=== PATIENT | female | born 1960 | race Hispanic/Latino ===

== ENCOUNTER → 2017-05-19 | Outpatient (REF) | payer OTHER | LOC: M SFHCWAGY 09:49 | PROVIDERS: ATTEND Nurse Practitioner Women's Health | DX: Z12.4 Encounter for screening for malignant neoplasm of cervix (principal) ==

== ENCOUNTER → 2017-05-27 | Outpatient (CLI) | payer OTHER ==
--- NOTE | 2017-05-27 10:47 | REP ---
BILATERAL MAMMOGRAM WITH DIAGNOSTIC MAMMOGRAM LEFT BREAST AND LEFT BREAST ULTRASOUND: Family history of breast cancer in sister and maternal grandmother. There is reportedly a palpable abnormality in the lateral left breast with discoloration of the skin at that location. The area is marked with a triangular skin marker. Comparison is made with prior study of 05/02/2016 as well as other prior exams. Vague, ill-defined opacity is seen at the site of the reported palpable abnormality having a diameter of approximately 2 cm. No other mass is seen bilaterally. No clustered microcalcifications are seen. There are normal-sized axillary lymph nodes present. Real-time sonographic evaluation of left breast performed in the region of the palpable abnormally laterally in the left breast. There is a superficial subcutaneous, slightly complex fluid collection at that location measuring 2.4 x 0.5 x 2.1 cm. This probably represents a hematoma. Just deep to the fluid collection within the left breast, are two 3 mm hypoechoic nodules. There are also mildly dilated ducts noted. IMPRESSION: ACR 3, probably benign. No suspicious mammographic abnormalities are seen. By ultrasound at the site of the reported abnormality, is a subcutaneous fluid collection, probably representing a small hematoma. Deep to this, are two hypoechoic nodules both measuring 3 mm in diameter. These are probably benign. Recommend 6 month followup ultrasound to ensure stability. BI-RADS/ACR category 3 mammogram. Probably benign findings. Initial short-term followup (usually 6 month) examination. This mammogram was interpreted with the aid of an FDA-approved computer-aided detection system. A. Negative x-ray reports should not delay biopsy if a dominant or clinically suspicious mass is present. B. Four to eight percent of cancers are not identified by x-ray. C. Adenosis and dense breasts may obscure an underlying neoplasm. The patient states she had a clinical breast exam in 05/2017. The patient letter being requested is M3. Signed by Renaldo Kumar MD 05/27/2017 04:55 P
== END ==
LOC: M RAD 08:12
PROVIDERS: ATTEND Physician Assistant
DX: Z12.31 Encounter for screening mammogram for malignant neoplasm of breast (principal)

== ENCOUNTER → 2017-12-04 | Outpatient (CLI) | payer OTHER | LOC: M RAD 09:10 | DX: R93.8 Abnormal findings on diagnostic imaging of other specified body structures (principal); N63.20 Unspecified lump in the left breast, unspecified quadrant | CPT/HCPCS: 77065 ==

== ENCOUNTER → 2017-12-25 | Outpatient (CLI) | payer OTHER, SELFPAY | LOC: M RAD 11:21 | DX: N63.11 Unspecified lump in the right breast, upper outer quadrant (principal) ==

== ENCOUNTER → 2018-01-14 | Outpatient (CLI) | payer OTHER ==
[~2018-01-14] MED LIST: LIDOCAINE 1% MDV 20ML VIAL As Ordered
== END ==
LOC: M RADPRO 10:23
DX: N63.10 Unspecified lump in the right breast, unspecified quadrant (principal); R92.8 Other abnormal and inconclusive findings on diagnostic imaging of breast; Z79.899 Other long term (current) drug therapy
CPT/HCPCS: 19083

== ENCOUNTER → 2018-02-10 | Outpatient (CLI) | payer OTHER | LOC: M RADPRO 10:16 | DX: R92.8 Other abnormal and inconclusive findings on diagnostic imaging of breast (principal); Z79.899 Other long term (current) drug therapy | CPT/HCPCS: 19081 ==

== ENCOUNTER → 2018-05-21 | Outpatient (REF) | payer OTHER | LOC: M SFHCWAGY 10:31 | DX: Z12.4 Encounter for screening for malignant neoplasm of cervix (principal) | CPT/HCPCS: G0123 ==

== ENCOUNTER → 2018-12-21 | Outpatient (CLI) | payer OTHER ==
--- NOTE | 2018-12-21 09:37 | REPMRS ---
Patient History The patient states she had a clinical breast exam in 2017. Family history of breast cancer at age 53 in sister, ovarian cancer under age 50 in maternal grandmother. Benign stereotatic loc for ea lesion of the right breast, February 10, 2018. Benign US guided breast biopsy of the right breast, January 14, 2018. Digital Mammo Screening Bilat: December 21, 2018 - Exam #: [id number] Bilateral CC and MLO view(s) were taken. Technologist: Marina Huertas, Technologist Prior study comparison: January 14, 2018, right breast digital mammo diagnostic unilateral performed at [facility]. December 25, 2017, right breast digital mammo diagnostic unilateral performed at [facility]. FINDINGS: There are scattered fibroglandular densities. There is a fairly symmetric fibroglandular pattern in both breasts. There has been no interval development of masses, areas of architectural distortion or clusters of microcalcifications typical of malignancy. Assessment: BI-RADS/ACR category 2 mammogram. Benign Findings. Recommendation Routine screening mammogram of both breasts in 1 year (for women over age 40). This mammogram was interpreted with the aid of an FDA-approved computer-aided dectection system. Electronically Signed By: Renaldo Kumar MD 12/21/18 0937
== END ==
LOC: M RAD 07:54
PROVIDERS: ATTEND Surgery
DX: Z12.31 Encounter for screening mammogram for malignant neoplasm of breast (principal)

== ENCOUNTER → 2019-07-01 | Outpatient (REF) | payer OTHER ==
[~2019-07-01] MED LIST changes: +CELE100C PO; +GLUC1CAP10 PO; -LIDOCAINE 1% MDV 20ML VIAL As Ordered; +OYST500T7 PO; +PATA2.5S OU; +REFR0.5D8 OU
== END ==
LOC: M SFHCWAGY 14:47
PROVIDERS: ATTEND Nurse Practitioner Women's Health
DX: Z12.4 Encounter for screening for malignant neoplasm of cervix (principal)

== ENCOUNTER 2019-07-14 06:33 | Observation (INO) | payer OTHER ==
[~2019-07-14] VITALS: Ht 149.9 cm; Wt 78.5 kg
[~2019-07-14 06:33] MED LIST changes: +LIDOCAINE 1% MDV 20ML VIAL SQ PRN; +LR 1,000 ML IV ONE; +ceFAZolin SOD 1 GM in D5W MINI-BAG PLUS 50 ML IV ONE
[2019-07-14] MEDS ORDERED: SCOPOLAMINE 1MG TRANSDERMAL PATCH As Ordered ONE (07:54)
[2019-07-14] MEDS ORDERED: PROPOFOL 200 MG/20 ML VIAL As Ordered ONE ×2 (08:16→10:27)
[2019-07-14] MEDS ORDERED: fentaNYL 250 MCG/5 ML INJECTION (J3010) As Ordered ONE (08:16)
[2019-07-14] MEDS ORDERED: ROCURONIUM BROMIDE 50 MG/5 ML VIAL As Ordered ONE ×2 (08:16→10:29)
[2019-07-14] MEDS ORDERED: LIDOCAINE 2% INJ 100 MG/5 ML SDV (FOR ANES.) As Ordered ONE (08:16)
[2019-07-14] MEDS ORDERED: MIDAZOLAM INJ 2 MG/2 ML VIAL (J2250) As Ordered ONE (08:17)
[2019-07-14] MEDS ORDERED: BACITRACIN PWD 50,000 UNITS VIAL As Ordered ONE (08:26)
[2019-07-14] MEDS ORDERED: HEPARIN SOD (PORCINE) 5000 UNITS/ML VIAL As Ordered ONE (08:39)
[2019-07-14] MEDS ORDERED: LIDOCAINE 1% MDV 20ML VIAL As Ordered ONE (08:39)
[2019-07-14] MEDS ORDERED: EPINEPHrine INJ 1 MG/ML 1ML AMP As Ordered ONE ×2 (08:40→08:46)
[2019-07-14] MEDS ORDERED: BUPIVACAINE LIPOSOME/PF 1.3% 20ML VIAL (13.3MG/ML)(EXPAREL)(C9290 PER1MG) As Ordered ONE (08:44)
[2019-07-14] MEDS ORDERED: SCOPOLAMINE 1MG TRANSDERMAL PATCH TOP ONE (09:00)
[2019-07-14] MEDS ORDERED: DESFLURANE 240 ML INHALANT As Ordered ONE (09:08)
[2019-07-14] MEDS ORDERED: fentaNYL 100 MCG/2 ML INJECTION (J3010) As Ordered ONE (11:01)
[2019-07-14] MEDS ORDERED: HYDROmorphone HCL 2 MG/ML 1ML VIAL (J1170) As Ordered ONE (11:02)
[2019-07-14] MEDS ORDERED: dexameTHASONE 4 MG/ML 1ML VIAL (J1100) As Ordered ONE (11:54)
[2019-07-14] MEDS ORDERED: ONDANSETRON 4MG/2ML VIAL (J2405) As Ordered ONE ×2 (11:54→13:31)
[2019-07-14] MEDS ORDERED: KETOROLAC 60 MG/2 ML VIAL (J1885) As Ordered ONE (11:54)
[2019-07-14] MEDS ORDERED: ACETAMINOPHEN 1000MG 100ML IV BTL (OFIRMEV) (J0131 PER 10MG) As Ordered ONE (12:12)
[2019-07-14] MEDS ORDERED: NEOSTIGMINE 10 MG/10 ML VIAL (J2710) As Ordered ONE (12:55)
[2019-07-14] MEDS ORDERED: GLYCOPYRROLATE INJ 0.2 MG/ML 2 ML VIAL As Ordered ONE (12:55)
--- NOTE | 2019-07-14 13:11 | POST-OPPD ---
Postoperative Procedure Note Date Of Procedure: Jul 14, 2019 PREOPERATIVE DIAGNOSIS: Bilateral symptomatic macromastia POSTOPERATIVE DIAGNOSIS: same FINDINGS: large pendulous breasts PROCEDURE: Bilateral breast reduction SURGEON: Dr Kohler ANESTHESIA: General SPECIMENS: Right breast 760g, Left breast 829g, liposuction 450cc ESTIMATED BLOOD LOSS: 150cc REPLACED: none DRAINS: 10 mm VELMA drains x 2 COMPLICATIONS: none POSTOPERATIVE CONDITION: stable PATTIE KOHLER DO Jul 14, 2019 13:10
[2019-07-14] MEDS ORDERED: fentaNYL 100 MCG/2 ML INJECTION (J3010) IV PRN (13:30)
[2019-07-14] MEDS ORDERED: HYDROMORPHONE HCL 0.5 MG/ 0.5 ML SYRINGE (J1170 PER 1) IV PRN (13:30)
[2019-07-14] MEDS ORDERED: ONDANSETRON 4MG/2ML VIAL (J2405) IV PRN ×2 (13:30→14:00)
[2019-07-14] MEDS ORDERED: PERCOCET 5MG/325MG TAB PO PRN ×2 (13:30→14:00)
[2019-07-14] MEDS ORDERED: LR 1,000 ML IV SCH (13:30)
[2019-07-14] MEDS ORDERED: PROMETHAZINE INJ 25 MG/ML VIAL (J2550) As Ordered ONE (13:49)
[2019-07-14] MEDS ORDERED: PROMETHAZINE INJ 25 MG/ML VIAL (J2550) IV PRN (14:15)
[2019-07-14] MEDS: LR 1,000 ML IV SCH (15:00)
[2019-07-14] MEDS: ceFAZolin SOD 1 GM in D5W MINI-BAG PLUS 50 ML IV SCH (15:34)
[2019-07-14 15:41] VITALS: BP 119/57
[2019-07-14 15:58] VITALS: BP 103/59
[2019-07-14] MEDS ORDERED: MORPHINE 4 MG/ML 1ML VIAL/SYRINGE (J2270) IV PRN (16:15)
[2019-07-14 16:19] VITALS: O2SAT 96
[2019-07-14 17:10] VITALS: BP 108/60
[2019-07-14 18:05] VITALS: BP 110/60
--- NOTE | 2019-07-14 19:01 | RO ---
DATE OF PROCEDURE: 07/14/2019 PREPROCEDURE DIAGNOSIS: Bilateral symptomatic macromastia. POSTPROCEDURE DIAGNOSIS: Bilateral symptomatic macromastia. FINDINGS: Large pendulous breasts. PROCEDURE: Bilateral breast reduction. SURGEON: Lou Bernal DO ANESTHESIA: General. SPECIMENS SENT: Right breast 760 grams, left breast 829 grams. LIPOSUCTION FLUID: 450 mL. BLOOD LOSS: 150 mL. No replacement needed. DRAINS: Two 10 mm Terrence-Cm drains. No complications. DESCRIPTION OF PROCEDURE: This is a 59-year-old female who has very large breasts with significant upper back pain and shoulder grooving. She is a great candidate for breast reduction, and she is ready to proceed today. Risks and benefits and alternatives discussed with the patient in detail, and informed consent was obtained. She was marked in the upright position in the preoperative holding area. Her measurements are as follows: From sternal notch to the nipple areolar complex on the left is 37 cm, on the right is 38 cm. She has a very wide-based breast. Her IMF is at 24 cm bilaterally. She is marked according to superior medial pedicle pattern. After the markings were completed, she was brought into the operating room, placed in supine position. Preoperative antibiotics given. Sequential stockings placed on the lower calves. General anesthesia was induced. Also, 5000 units of Heparin SQ was given to her before the procedure. She was prepped and draped in the usual sterile fashion. We finished our markings in the supine position, and started our procedure by outlining the nipple areolar complex at 45 mm in diameter. The incision was carried out using #10 blade and then PEAK and regular cautery were used for resecting of the tissue. Inferolateral portion of the breast was resected. Hemostasis was obtained using electrocautery as well. The pedicle was de-epithelialized using Castillo scissors. There was good vascular condition at all times. The wound was irrigated. Exparel was injected into the inferior portion of the breast. Then, we started reconstructing the breast tissue. We turned pedicle superiorly to its new position at 24 cm from sternal notch, and the breast mound was re-conformed, and it was suspended with #0 Vicryl sutures. The pillars were then closed with interrupted #3-0 Monocryl sutures. The vertical scar was 9 cm. Excess tissue was measured and resected, creating the horizontal scar which was closed with #3-0 Monocryl sutures and #3-0 V-Loc suture as well. 10 mm Terrence-Cm drain placed through the lateral portion of that horizontal scar. Nipple areolar complex was sutured in in layers with interrupted #3-0 Monocryl and #4-0 Monocryl sutures and a #5-0 plain. Then, we turned our attention to the left side. A mirror procedure was created. Nipple areolar complex was measured out at 45 mm in diameter. The inferolateral portion of the breast was resected using PEAK and regular cautery. Hemostasis was obtained. The pedicle was de-epithelialized using Castillo scissors, and the wound was irrigated. Exparel was injected into the breast tissue inferiorly and laterally and then the pedicle was turned superiorly to its new position at 24 cm from the sternal notch. The breast mound was re-created and was conformed using #0 Vicryl sutures. Pillars were closed with interrupted #3-0 Monocryl sutures. The length of the vertical scar is 9 cm on the left. Excess tissue was measured and resected, creating the horizontal scar which was closed with interrupted #3- 0 Monocryl sutures and a #3-0 V-Loc suture as well. Nipple areolar complex was sutured in layers with #3-0 and #4-0 Monocryl sutures as well as #5-0 plain. 10 mm Terrence-Cm drain was placed through the lateral portion of the horizontal incision. The excess tissue on the lateral chest was premarked in upright position and now confirmed in the lying position. She has excess tissue creating significant fold. Tumescent solution was infiltrated on the lateral chest on the left side 270 mL and on the right side 250 mL and then suction-assisted lipectomy was performed on both lateral portions of the chest, smoothing out the contour from the lateral breast transposing to the chest. Prineo dressing was applied. Xeroform to the nipple areolar complex with bulky dressing and a support bra. The patient was extubated in the operating room without any difficulty, was transferred to the recovery room in stable condition. KINZA
[2019-07-15] MEDS: ceFAZolin SOD 1 GM in D5W MINI-BAG PLUS 50 ML IV SCH (01:28)
[2019-07-15 02:57] VITALS: BP 110/60
[2019-07-15] MEDS: LR 1,000 ML IV SCH (05:30)
[2019-07-15 06:09] VITALS: BP 98/59
--- NOTE | 2019-07-15 10:04 | IPNPDOC ---
Subjective General Date/Time Seen The patient was seen on 07/15/19 at 8:00. Subject Chief Complaint/History The patient is a 59-year-old female admitted with a reason for visit of Hypertrophy Of Breasts. POD 1 s/p BBR. Doing well. Pain controlled. Walking, tolerating diet. Current Medications Current Medications Current Medications Medications (Trade) Dose Ordered Sig/Leona Route PRN Reason Start Time Stop Time Status Last Admin Dose Admin Cefazolin Sodium 1 gm/Dextrose 50 ml @ 100 mls/hr Q8H IV 07/14/19 16:00 07/15/19 00:29 DC 07/15/19 01:28 Fentanyl Citrate (Sublimaze) 25 mcg Q5MP PRN IV MODERATE PAIN (PS 4-7) 07/14/19 13:30 07/14/19 14:30 DC Hydromorphone HCl (Dilaudid) 0.4 mg Q5MP PRN IV MODERATE/SEVERE PAIN (PS 5-10) 07/14/19 13:30 07/14/19 14:30 DC Lactated Ringer's 1,000 ml @ 75 mls/hr [id number] IV 07/14/19 14:00 07/14/19 15:00 Lactated Ringer's 1,000 ml @ 100 mls/hr Q10H IV 07/14/19 13:30 07/14/19 14:30 DC Lidocaine HCl (LIDOCAINE 1% MDV 20ml) 0.1 ml ONCE PRN SQ DISCOMFORT BEFORE IV START 07/14/19 06:00 07/14/19 13:25 DC Miscellaneous (Unresolved Clarification Entry) SEE LABEL COMMENTS DAILY XX 07/14/19 09:00 07/14/19 16:11 DC Morphine Sulfate (Morphine Sulfate Inj) 4 mg Q4H PRN IV SEVERE PAIN (PS 8-10) 07/14/19 16:15 Ondansetron HCl (ZOFRAN INJection) 4 mg Q4HP PRN IV NAUSEA OR VOMITING 07/14/19 13:30 07/14/19 14:30 DC 07/14/19 13:33 Ondansetron HCl (ZOFRAN INJection) 4 mg Q4HP PRN IV NAUSEA 07/14/19 14:00 07/14/19 15:34 Oxycodone/ Acetaminophen (Percocet 5mg/ 325mg Tablet) 1 tab ASDIRECTED PRN PO MILD/MODERATE PAIN (PS 1-7) 07/14/19 13:30 07/14/19 14:30 DC Oxycodone/ Acetaminophen (Percocet 5mg/ 325mg Tablet) 1 tab Q4HP PRN PO MILD PAIN (PS 1-4) 07/14/19 14:00 Promethazine HCl (PHENERGAN INJection) 12.5 mg Q5MP PRN IV NAUSEA OR VOMITING 07/14/19 14:15 07/14/19 15:15 DC 07/14/19 13:50 Allergies Coded Allergies: No Known Allergies (Unverified , 07/05/19) Objective Physical Examination Examination GENERAL APPEARANCE:Patient seen, laying in bed, awake, alert, and oriented. Co mfortable, in no acute distress. SKIN: Warm and moist. BREAST: Incisions intact. NAC viable, warm. VELMA drains with serosanguinous drainage. Minimal post op ecchymosis. HEENT: Normocephalic, atraumatic. [place] palpebral conjunctiva, anicteric sclerae. Lips and mucosa appear moist. NECK: Supple, no thyromegaly. No obvious jugular venous distention. LUNGS: Clear to auscultation bilaterally. No wheezing appreciated. HEART: No chest wall abnormalities. Regular rate and rhythm with no murmurs appreciated. Vital Signs Vital Signs Date Time Temp Pulse Resp B/P (MAP) Pulse Ox O2 Delivery O2 Flow Rate FiO2 07/15/19 06:09 99.0 70 16 98/59 (72) 95 2.0 07/14/19 16:19 Nasal Cannula I&Os I&O- Last 24 Hours up to 6 AM 07/15/19 06:00 Intake Total 2210 ml Output Total 525 ml Balance 1685 ml Impression Symptomatic macromastia. S/p BBR POD 1. Doing well. Pain controlled. Stable for discharge. Dressing changed. teaching. F/up Plastic surgery 07/18/19 Instructions given. Plan / VTE VTE Prophylaxis Ordered?: Yes PATTIE KOHLER DO Jul 15, 2019 10:04
[2019-07-15] MEDS ORDERED: TYLETAB14 PO (10:08)
== END 2019-07-15 10:06 | disposition home or self-care (01) ==
LOC: M SDC 06:33 → M MS5PR 14:32 → M SDC 15:00 → M MS5PR 15:11 → M SDC 07-15 11:10 → M MS5PR 07-15 11:10
PROVIDERS: ADMIT Plastic Surgery Surgery of the Hand; ATTEND Plastic Surgery Surgery of the Hand
DX: N62 Hypertrophy of breast (principal); E78.5 Hyperlipidemia, unspecified; K21.9 Gastro-esophageal reflux disease without esophagitis; D64.9 Anemia, unspecified; Z79.899 Other long term (current) drug therapy
CPT/HCPCS: 19318; 88300; 88305; C9290; J0131; J0690; J1100; J1170; J1885; J2250; J2405; J2710; J3010

== ENCOUNTER → 2019-12-23 | Outpatient (CLI) | payer OTHER ==
[~2019-12-23] MED LIST changes: -LIDOCAINE 1% MDV 20ML VIAL SQ PRN; -LR 1,000 ML IV ONE; +TYLETAB14 PO; -ceFAZolin SOD 1 GM in D5W MINI-BAG PLUS 50 ML IV ONE
--- NOTE | 2019-12-23 10:03 | REPMRS ---
Patient History The patient states she had a clinical breast exam in July 2019.Patient is postmenopausal and had first child at age 31. Family history of breast cancer at age 53 in sister, ovarian cancer under age 50 in maternal grandmother. Reductions of both breasts, June 2019. Benign stereotatic loc for ea lesion of the right breast, February 10, 2018. Benign US guided breast biopsy of the right breast, January 14, 2018. Digital Woman Screen Mammo: December 23, 2019 - Exam #: [id number] Bilateral CC and MLO view(s) were taken. Technologist: Marina Huertas, Technologist Prior study comparison: December 21, 2018, bilateral digital mammo screening bilat, performed at [facility]. January 14, 2018, right breast digital mammo diagnostic unilateral, performed at [facility]. December 04, 2017, left breast digital mammo diagnostic unilateral, performed at [facility]. May 27, 2017, digital mammo diagnostic bilateral, performed at [facility]. FINDINGS: There are scattered fibroglandular densities. A needle biopsy marker clip is noted in the upper outer quadrant of the right breast. Two marker clips were visible previously. The patient has undergone bilateral breast reduction. There has been no change in the appearance of the mammogram from the prior studies. There is a mild amount of scattered fibroglandular density which is fairly symmetric. There is no interval development of dominant mass, architectural distortion, or grouped microcalcification suggestive of malignancy. 3-D tomosynthesis shows no additional findings. Assessment: BI-RADS/ACR category 2 mammogram. Benign Findings. Recommendation Breast MRI of both breasts in 6 months. Routine screening mammogram of both breasts in 1 year (for women over age 40). This patient's Lifetime Breast Cancer Risk is estimated at 21.8 %. Annual screening Breast MRI scanniing is recommended for patient's whose lifetime risk assessment is over 20%. This mammogram was interpreted with the aid of an FDA-approved computer-aided dectection system. Electronically Signed By: Richie Fonseca MD 12/23/19 0135
== END ==
LOC: M WHC 07:33
PROVIDERS: ATTEND Family Medicine
DX: Z12.31 Encounter for screening mammogram for malignant neoplasm of breast (principal); Z78.0 Asymptomatic menopausal state; Z80.3 Family history of malignant neoplasm of breast

== ENCOUNTER → 2020-03-12 | Outpatient (CLI) | payer OTHER | LOC: M LABSMTC 09:58 | PROVIDERS: ATTEND Anesthesiology | DX: Z01.818 Encounter for other preprocedural examination (principal); Z11.59 Encounter for screening for other viral diseases ==

== ENCOUNTER 2020-03-15 07:25 | Day surgery (SDC) | payer OTHER ==
[~2020-03-15] VITALS: Ht 149.9 cm; Wt 81.6 kg
[~2020-03-15 07:25] MED LIST changes: +NS 1,000 ML IV ONE
[2020-03-15] MEDS ORDERED: CELE100C PO (07:51)
[2020-03-15] MEDS ORDERED: LIDOCAINE 2% 100MG/5ML SDV (FOR ANES.) As Ordered ONE (08:10)
[2020-03-15] MEDS ORDERED: propofoL 500 MG/50 ML VIAL As Ordered ONE (08:10)
--- NOTE | 2020-03-15 08:28 | ROOR ---
Patient Name: Emma Palomo Procedure Date: 03/15/2020 8:08 AM Date of : 1960 Age: 59 Room: [facility] Gender: Female Note Status: Finalized Procedure: Colonoscopy Indications: Screening for colorectal malignant neoplasm Providers: Jose Guadalupe Ocampo Jr, MD Referring MD: SHAYNA CORRAL MD Requesting Provider: Medicines: Propofol per Anesthesia Complications: No immediate complications. Procedure: Pre-Anesthesia Assessment: - Prior to the procedure, a History and Physical was performed, and patient medications and allergies were reviewed. The patient is competent. The risks and benefits of the procedure and the sedation options and risks were discussed with the patient. All questions were answered and informed consent was obtained. Patient identification and proposed procedure were verified by the physician and the nurse in the pre-procedure area and in the procedure room. Mental Status Examination: alert and oriented. Airway Examination: normal oropharyngeal airway and neck mobility. Respiratory Examination: clear to auscultation. CV Examination: normal. ASA Grade Assessment: II - A patient with mild systemic disease. After reviewing the risks and benefits, the patient was deemed in satisfactory condition to undergo the procedure. The anesthesia plan was to use moderate sedation / analgesia (conscious sedation). Immediately prior to administration of medications, the patient was re-assessed for adequacy to receive sedatives. The heart rate, respiratory rate, oxygen saturations, blood pressure, adequacy of pulmonary ventilation, and response to care were monitored throughout the procedure. The physical status of the patient was re-assessed after the procedure. The Colonoscope was introduced through the anus and advanced to the cecum, identified by appendiceal orifice and ileocecal valve. The quality of the bowel preparation was adequate. Findings: The rectum, sigmoid colon, transverse colon, cecum and ileocecal valve appeared normal. Four polyps were found in the recto-sigmoid colon, transverse colon and ascending colon. The polyps were small in size. These polyps were removed with a cold snare. Resection and retrieval were complete. Impression: - The rectum, sigmoid colon, transverse colon, cecum and ileocecal valve are normal. - Four small polyps at the recto-sigmoid colon, in the transverse colon and in the ascending colon, removed with a cold snare. Resected and retrieved. Recommendation: - Repeat colonoscopy in 5 years for surveillance based on pathology results. Jose Guadalupe Ocampo MD Jose Guadalupe Ocampo Jr, MD 03/15/2020 8:28:16 AM Electronically signed by Jose Guadalupe Ocampo Jr, MD Number of Addenda: 0 Note Initiated On: 03/15/2020 8:08 AM Estimated Blood Loss: Estimated blood loss: none.
[2020-03-15 08:50] VITALS: BP 129/81
== END 2020-03-15 09:09 | disposition home or self-care (01) ==
LOC: M OPP 07:25
PROVIDERS: ATTEND Surgery
DX: Z12.11 Encounter for screening for malignant neoplasm of colon (principal); D12.6 Benign neoplasm of colon, unspecified; Z79.899 Other long term (current) drug therapy

== ENCOUNTER → 2020-07-10 | Outpatient (CLI) | payer OTHER ==
[~2020-07-10] MED LIST changes: -NS 1,000 ML IV ONE; -OYST500T7 PO; +OYST500T8 PO; +PROHANCE 279.3MG/ML 15ML VIAL As Ordered ONE
--- NOTE | 2020-07-20 09:57 | REP ---
MRI BILATERAL BREASTS WITHOUT AND WITHOUT CONTRAST HISTORY: Family history of breast cancer in sister. [facility] lifetime risk of breast cancer 21.8%. TECHNIQUE: Multiple sequences obtained in the axial, coronal, and sagittal planes prior to and following the intravenous administration of 15 cc ProHance. Images were evaluated on the [employer] software including dynamic post IV gadolinium axial T1 fat sat images, subtraction images, color overlay images, CAD images, and MIP reconstruction images. FINDINGS: There is mild fibroglandular tissue scattered bilaterally. There is mild background parenchymal enhancement. No significant cystic changes seen. Normal size and normal appearing lymph nodes are seen in both axillary regions. No enhancing mass is seen, and there is no enhancing morphologic abnormality bilaterally. IMPRESSION: BI-RADS category 1 negative bilateral breast MRI. No suspicious enhancing mass or morphologic abnormality. Yearly supplemental screening MRI of the breast is recommended for patients with an elevated lifetime risk of breast cancer 20% or greater, in additional to annual screening mammography, staggered every six months. [facility]
== END ==
LOC: M RAD 07:54
PROVIDERS: ATTEND Family Medicine
DX: Z12.31 Encounter for screening mammogram for malignant neoplasm of breast (principal); Z15.01 Genetic susceptibility to malignant neoplasm of breast; Z80.3 Family history of malignant neoplasm of breast
CPT/HCPCS: A9576; C8908

== ENCOUNTER → 2020-12-24 | Outpatient (CLI) | payer OTHER ==
[~2020-12-24] MED LIST changes: -PROHANCE 279.3MG/ML 15ML VIAL As Ordered ONE
--- NOTE | 2020-12-24 09:34 | REPMRS ---
Patient History The patient states she had a clinical breast exam in June 2020. Family history of breast cancer at age 53 in sister, ovarian cancer under age 50 in maternal grandmother. Reductions of both breasts, June 2019. Benign stereotatic loc for ea lesion of the right breast, February 10, 2018. Benign US guided breast biopsy of the right breast, January 14, 2018. Digital Woman Screen Mammo: December 24, 2020 - Exam #: [id number] Bilateral CC and MLO view(s) were taken. Technologist: Kassie Bob, Technologist Prior study comparison: July 10, 2020, bilateral breast MRI, performed at [facility]. December 23, 2019, bilateral digital woman screen mammo performed at [facility]. December 21, 2018, bilateral digital mammo screening bilat, performed at [facility]. FINDINGS: There are scattered fibroglandular densities. The Volpara volumetric breast density category is:B. There is a needle biopsy marker clip in the right breast. There has been no change in the appearance of the mammogram from the prior studies. There is a mild amount of scattered fibroglandular density which is fairly symmetric. There is no interval development of dominant mass, architectural distortion, or grouped microcalcification suggestive of malignancy. 3-D tomosynthesis shows no additional findings. Assessment: BI-RADS/ACR category 2 mammogram. Benign Findings. Recommendation Breast MRI of both breasts in 6 months. Routine screening mammogram of both breasts in 1 year (for women over age 40). This patient's [facility] Lifetime Breast Cancer Risk is estimated at 21.1 %. Annual screening Breast MRI scanniing is recommended for patient's whose lifetime risk assessment is over 20%. This mammogram was interpreted with the aid of an FDA-approved computer-aided dectection system. Electronically Signed By: Richie Fonseca MD 12/24/20 0933
== END ==
LOC: M WHC 07:48
PROVIDERS: ATTEND Family Medicine
DX: Z12.31 Encounter for screening mammogram for malignant neoplasm of breast (principal); Z80.3 Family history of malignant neoplasm of breast; Z98.890 Other specified postprocedural states; Z86.018 Personal history of other benign neoplasm

== ENCOUNTER → 2021-07-04 | Outpatient (CLI) | payer OTHER | LOC: M WHC 09:04 | PROVIDERS: ATTEND Family Medicine | DX: Z53.9 Procedure and treatment not carried out, unspecified reason (principal) ==

== ENCOUNTER → 2021-07-17 | Outpatient (CLI) | payer OTHER ==
[~2021-07-17] MED LIST changes: +PROHANCE 279.3MG/ML 15ML VIAL As Ordered ONE
--- NOTE | 2021-07-17 13:17 | REP ---
INDICATION: DENSE BREAST TISSUE HIGH RISK SCREENING. COMPARISON: Comparison mammography December 24, 2020. Comparison MRI study of the breast is from July 10, 2020. TECHNIQUE: Three [place]una MRI imaging was performed with a dedicated breast coil. Axial, coronal, and sagittal T1 and T2 weighted scans were obtained with and without fat saturation in the usual fashion. The study includes dynamically acquired post gadolinium-enhanced imaging with image subtraction. Maximum intensity projection and multi planar reformation imaging is included as well. This study is interpreted with the aid of [employer], an FDA approved computer aided detection (CAD) software program, on a dedicated breast MRI workstation. The gadolinium enhancement dose is 15 mL of intravenous ProHance. FINDINGS: There is a mild amount of fibroglandular tissue bilaterally corresponding with the mammographic pattern. There is mild background parenchymal enhancement. There is no evidence of axillary lymphadenopathy or significant breast cystic change. High-resolution pre and post-contrast T1 and T2 weighted scans show no suspicious morphologic abnormality in either breast. Dynamically acquired sequential postcontrast images show no suspicious area of enhancement and washout kinetics in either breast to suggest malignancy. Subtraction images show no additional abnormality. There is a magnetic field susceptibility artifact in the right breast inferolaterally corresponding with the mammographically visible marker clip. There are scattered micrometallic artifacts in this patient is status post bilateral breast reduction. A 1 cm gallstone is visible in the gallbladder. IMPRESSION: BI-RADS category 2 benign bilateral breast MRI findings. Cholelithiasis is noted incidentally. Postoperative changes are seen. <Electronically signed by Richie Fonseca > 07/17/21 [id number]
== END ==
LOC: M RAD 09:08
PROVIDERS: ATTEND Student in an Organized Health Care Education/Training Program
DX: Z12.31 Encounter for screening mammogram for malignant neoplasm of breast (principal)
CPT/HCPCS: A9576; C8908

== ENCOUNTER → 2021-12-26 | Outpatient (CLI) | payer OTHER ==
[~2021-12-26] MED LIST changes: -PROHANCE 279.3MG/ML 15ML VIAL As Ordered ONE
== END ==
LOC: M WHC 07:01
PROVIDERS: ATTEND Family Medicine
DX: Z12.31 Encounter for screening mammogram for malignant neoplasm of breast (principal); Z78.0 Asymptomatic menopausal state; Z80.3 Family history of malignant neoplasm of breast

== ENCOUNTER → 2022-07-31 | Outpatient (REF) | payer OTHER | LOC: M LAB REF 11:57 | PROVIDERS: ATTEND Ophthalmology | DX: H02.9 Unspecified disorder of eyelid (principal) ==

== ENCOUNTER → 2022-12-29 | Outpatient (CLI) | payer OTHER | LOC: M WHC 08:05 | PROVIDERS: ATTEND Family Medicine | DX: Z12.31 Encounter for screening mammogram for malignant neoplasm of breast (principal) ==

== ENCOUNTER 2023-11-16 11:48 | Observation (INO) | payer OTHER ==
[~2023-11-16] VITALS: Ht 149.9 cm; Wt 74.9 kg
[2023-11-16] VITALS (9 sets, daily range): BP systolic 122–163; BP diastolic 58–82; TEMP 97.7–98.4; O2SAT 98–100
[2023-11-16] MEDS ORDERED: FLUTISP NARES (11:57)
[2023-11-16] MEDS ORDERED: FEXO-116 PO (11:57)
[2023-11-16 14:17] LABS: BASO % 0.4 % (0.0-1.0); EOS # 0.1 10^3/uL (0.0-0.5); EOS % 1.1 % (0.0-3.0); HEMATOCRIT 22.9 % (36.0-47.0); LYMPH # 1.7 10^3/uL (1.5-5.0); LYMPH % 20.8 % (24.0-44.0); MEAN CORPUSCULAR HEMOGLOBIN 15.9 pg (27.0-33.0); MEAN CORPUSCULAR HGB CONC 25.3 g/dl (32.0-36.5); MEAN CORPUSCULAR VOLUME 62.7 fl (80.0-96.0); MONO # 0.7 10^3/uL (0.0-0.8); MONO % 8.8 % (2.0-8.0); NEUTROPHILS # 5.4 10^3/uL (1.5-8.5); NEUTROPHILS % 68.4 % (36.0-66.0); PLATELET COUNT, AUTOMATED 268 10^3/uL (150-450); RED BLOOD COUNT 3.65 10^6/uL (4.00-5.40); WHITE BLOOD COUNT 7.9 10^3/uL (4.0-10.0)
[2023-11-16 14:31] LABS: HEMOGLOBIN 5.8 g/dl (12.0-15.5)
[2023-11-16 14:32] LABS: ALBUMIN 3.5 G/DL (3.2-5.2); ALKALINE PHOSPHATASE 95 U/L (46-116); ALT/SGPT 10 U/L (7.0-40); AST/SGOT 10 U/L (<34); BILIRUBIN,DIRECT 0.2 MG/DL (<0.4); BILIRUBIN,TOTAL 0.5 MG/DL (0.3-1.2); BLOOD UREA NITROGEN 14 MG/DL (9-23); CARBON DIOXIDE LEVEL 25 MMOL/L (20-31); CHLORIDE LEVEL 109 MMOL/L (98-107); CK-MB VALUE MASS < 1.0 NG/ML (<3.6); CPK CREATINE PHOSPHOKINASE 55 U/L (34-145); CREATININE FOR GFR 0.52 MG/DL (0.55-1.30); GLOMERULAR FILTRATION RATE > 60.0 (>45); GLUCOSE, FASTING 102 MG/DL (74-106); INR 1.19; MB/CK RELATIVE INDEX 1.81 (< OR =4); POTASSIUM SERUM 3.8 MMOL/L (3.5-5.1); PROTHROMBIN TIME 14.8 SECONDS (12.5-14.5); SODIUM LEVEL 141 MMOL/L (136-145); TOTAL PROTEIN 7.2 G/DL (5.7-8.2)
[2023-11-16 14:33] LABS: PARTIAL THROMBOPLASTIN TIME 30.6 SECONDS (24.8-34.2)
[2023-11-16] MEDS ORDERED: PROP15DR15 OU (15:02)
[2023-11-16] MEDS ORDERED: ACET325C5 PO (15:02)
[2023-11-16] MEDS ORDERED: TURM500T PO (15:02)
[2023-11-16] MEDS ORDERED: HOME MED LIST COMPLETE! XX SCH (15:05)
[2023-11-16] MEDS ORDERED: TUMS500C PO (15:15)
[2023-11-16] MEDS ORDERED: OLOP5DRO11 OU (15:15)
[2023-11-16] MEDS ORDERED: diphenhydrAMINE 50MG CAP PO ONE (15:20)
[2023-11-16] MEDS ORDERED: ACETAMINOPHEN TAB 650MG DOSE (2X325MG) PO ONE (15:20)
[2023-11-16 15:58] LABS: LDH LACTATE DEHYDROGENASE 158 U/L (120-246)
[2023-11-16 15:59] LABS: IRON (FE) 8 UG/DL (50-170); PERCENT SATURATION 1.8 % (13.2-45.0); TOTAL IRON BINDING CAPACITY 433 UG/DL (250-425)
[2023-11-16] MEDS ORDERED: GASTROGRAFIN SOLUTION 30ML PO SCH (16:00)
[2023-11-16 16:02] LABS: FERRITIN < 0.9 NG/ML (7.3-270.7)
[2023-11-16] MEDS ORDERED: CelecoXIB (CeleBREX) 100 MG CAP PO PRN (16:20)
[2023-11-16] MEDS ORDERED: CALCIUM CARBONATE 500 MG CHEW U/D PO PRN (16:20)
[2023-11-16] MEDS ORDERED: SENOKOT S TAB PO PRN (16:20)
[2023-11-16] MEDS ORDERED: MIRALAX *UNIT DOSE* 17GM PACKET PO PRN (16:20)
[2023-11-16] MEDS ORDERED: MIRA1POW3 PO (16:23)
[2023-11-16] MEDS ORDERED: ASCO50TA PO (16:23)
[2023-11-16] MEDS ORDERED: SENN-52 PO (16:23)
[2023-11-16] MEDS ORDERED: FERR325T3 PO (16:28)
[2023-11-16 17:39] LABS: THYROID STIMULATING HORMONE 0.271 uIU/ML (0.55-4.78)
[2023-11-16] MEDS: FLUTICASONE PROP 0.05% NASAL SPRAY 16 GM (FLONASE) NARES SCH (20:10)
[2023-11-16] MEDS: OLOPATADINE 0.1% OPHTH SOL 5ML(PATANOL) OU SCH (20:10)
[2023-11-17] VITALS (9 sets, daily range): BP systolic 118–145; BP diastolic 58–72; TEMP 97.1–97.7; O2SAT 97–99
[2023-11-17 00:18] LABS: HEMATOCRIT 26.5 % (36.0-47.0); HEMOGLOBIN 7.3 g/dl (12.0-15.5)
[2023-11-17 00:43] LABS: CK-MB VALUE MASS < 1.0 NG/ML (<3.6)
[2023-11-17 00:44] LABS: CPK CREATINE PHOSPHOKINASE 44 U/L (34-145); MB/CK RELATIVE INDEX 2.27 (< OR =4)
[2023-11-17 07:34] LABS: HEMATOCRIT 36.3 % (36.0-47.0); MEAN CORPUSCULAR HEMOGLOBIN 20.2 pg (27.0-33.0); MEAN CORPUSCULAR HGB CONC 29.2 g/dl (32.0-36.5); MEAN CORPUSCULAR VOLUME 69.3 fl (80.0-96.0); PLATELET COUNT, AUTOMATED 224 10^3/uL (150-450); RED BLOOD COUNT 5.24 10^6/uL (4.00-5.40)
[2023-11-17 07:36] LABS: HEMOGLOBIN 10.6 g/dl (12.0-15.5)
[2023-11-17 07:51] LABS: BLOOD UREA NITROGEN 10 MG/DL (9-23); CALCIUM LEVEL 9.1 MG/DL (8.3-10.6); CARBON DIOXIDE LEVEL 23 MMOL/L (20-31); CHLORIDE LEVEL 113 MMOL/L (98-107); CREATININE FOR GFR 0.54 MG/DL (0.55-1.30); GLOMERULAR FILTRATION RATE > 60.0 (>45); GLUCOSE, FASTING 85 MG/DL (74-106); POTASSIUM SERUM 4.2 MMOL/L (3.5-5.1); SODIUM LEVEL 142 MMOL/L (136-145)
[2023-11-17 07:52] LABS: CHOLESTEROL LEVEL 163 MG/DL (<200); CHOLESTEROL RISK RATIO 3.23 (<5); CK-MB VALUE MASS < 1.0 NG/ML (<3.6); CPK CREATINE PHOSPHOKINASE 38 U/L (34-145); HDL CHOLESTEROL 50.4 MG/DL (>40); MB/CK RELATIVE INDEX 2.63 (< OR =4); NON-HDL-C 112.6 MG/DL; TRIGLYCERIDES LEVEL 103 MG/DL (<150)
[2023-11-17] MEDS: FLUTICASONE PROP 0.05% NASAL SPRAY 16 GM (FLONASE) NARES SCH (08:52)
[2023-11-17] MEDS: OLOPATADINE 0.1% OPHTH SOL 5ML(PATANOL) OU SCH (08:52)
[2023-11-17] MEDS ORDERED: FERROUS SULFATE 300MG/5ML UDC LIQUID PO SCH (09:00)
[2023-11-17] MEDS ORDERED: ASCORBIC ACID 500 MG TAB PO SCH (09:00)
== END 2023-11-17 09:50 | disposition home or self-care (01) ==
LOC: M ED 12:46 → M ED INP 14:55 → M MS4PR 19:50
PROVIDERS: ADMIT General Practice; ATTEND General Practice
DX: D50.9 Iron deficiency anemia, unspecified (principal); E78.00 Pure hypercholesterolemia, unspecified; M19.90 Unspecified osteoarthritis, unspecified site; Z86.010 Personal history of colon polyps; Z79.899 Other long term (current) drug therapy
CPT/HCPCS: 36415; 36430; 71046; 80048; 80061; 80076; 80503; 82550; 82553; 82728; 83010; 83020; 83036; 83550; 83615; 84443; 84484; 85014; 85018; 85025; 85027; 85046; 85610; 85730; 86850; 86900; 86901; 86920; 87486; 87581; 87633; 87798; 93005; 93041; 97161; 99285; P9016

== ENCOUNTER → 2023-12-31 | Outpatient (CLI) | payer OTHER ==
[~2023-12-31] MED LIST changes: +ACET325C5 PO; +ASCO50TA PO; +FERR325T3 PO; +FEXO-116 PO; +FLUTISP NARES; +MIRA33506 PO; +OLOP5DRO11 OU; +PROP15DR15 OU; +SENN-52 PO; +TUMS500C PO; +TURM500T PO
== END ==
LOC: M WHC 08:52
PROVIDERS: ATTEND Nurse Practitioner Primary Care
DX: Z12.31 Encounter for screening mammogram for malignant neoplasm of breast (principal)

== ENCOUNTER → 2024-02-09 | Outpatient (CLI) | payer OTHER ==
[2024-02-09 11:18] LABS: HEMATOCRIT 46.6 % (36.0-47.0); HEMOGLOBIN 14.5 g/dl (12.0-15.5); MEAN CORPUSCULAR HEMOGLOBIN 28.4 pg (27.0-33.0); MEAN CORPUSCULAR HGB CONC 31.1 g/dl (32.0-36.5); MEAN CORPUSCULAR VOLUME 91.2 fl (80.0-96.0); PLATELET COUNT, AUTOMATED 203 10^3/uL (150-450); RED BLOOD COUNT 5.11 10^6/uL (4.00-5.40); WHITE BLOOD COUNT 6.3 10^3/uL (4.0-10.0)
[2024-02-09 11:37] LABS: FERRITIN 21.8 NG/ML (7.3-270.7); FREE T4 1.34 NG/DL (0.89-1.76)
[2024-02-09 11:38] LABS: THYROID STIMULATING HORMONE 0.734 uIU/ML (0.55-4.78)
== END ==
LOC: M PLALAB 08:09
PROVIDERS: ATTEND Internal Medicine Hematology
DX: E61.1 Iron deficiency (principal)

== ENCOUNTER 2024-03-10 09:51 | Outpatient (CLI) | payer MEDICARE, OTHER ==
[~2024-03-10] VITALS: Ht 149.9 cm; Wt 77.3 kg
[~2024-03-10 09:51] MED LIST changes: +ALBUTEROL SULFATE 2.5MG/0.5ML INH NEB SOLN INH PRN; +EPINEPHrine INJ 1 MG/ML 1ML AMP IM PRN; +diphenhydrAMINE 50MG/ML VIAL IV PRN; +methylPREDNISolone 125MG 2ML VIAL IV PRN
[2024-03-10 10:30] VITALS: BP 157/80; O2SAT 98
[2024-03-10] MEDS ORDERED: ACETAMINOPHEN TAB 650MG DOSE (2X325MG) PO ONE (10:30)
[2024-03-10] MEDS ORDERED: NS 1,000 ML IV SCH (10:30)
[2024-03-10] MEDS: IRON SUCROSE 200 MG in NS 100 ML OVER 1 HR IV ONE (10:41)
[2024-03-10 11:50] VITALS: BP 136/75; O2SAT 97
== END 2024-03-10 12:00 | disposition home or self-care (01) ==
LOC: M INFU 09:51
PROVIDERS: ATTEND Internal Medicine Hematology
DX: D50.8 Other iron deficiency anemias (principal)
CPT/HCPCS: 96365; J1756

== ENCOUNTER 2024-03-17 11:00 | Outpatient (CLI) | payer MEDICARE, OTHER ==
[~2024-03-17] VITALS: Ht 149.9 cm; Wt 77.0 kg
[2024-03-17 11:00] VITALS: BP 143/79; O2SAT 97
[~2024-03-17 11:00] MED LIST changes: +ACETAMINOPHEN 650MG PO PRIOR TO INFUSION PO ONE; +NS 1,000 ML IV SCH
[2024-03-17] MEDS: IRON SUCROSE 200 MG in NS 100 ML IV ONE (11:59)
[2024-03-17 13:00] VITALS: BP 138/66; O2SAT 99
== END 2024-03-17 13:05 | disposition home or self-care (01) ==
LOC: M INFU 11:00
PROVIDERS: ATTEND Internal Medicine Hematology
DX: D50.8 Other iron deficiency anemias (principal)
CPT/HCPCS: 96365; J1756

== ENCOUNTER 2024-03-24 12:25 | Outpatient (CLI) | payer MEDICARE, OTHER ==
[~2024-03-24] VITALS: Ht 149.9 cm; Wt 73.2 kg
[~2024-03-24 12:25] MED LIST changes: -ACETAMINOPHEN 650MG PO PRIOR TO INFUSION PO ONE
[2024-03-24 12:30] VITALS: BP 124/88; O2SAT 96
[2024-03-24] MEDS: IRON SUCROSE 200 MG in NS 100 ML OVER 1 HR IV ONE (12:30)
[2024-03-24] MEDS ORDERED: ACETAMINOPHEN TAB 650MG DOSE (2X325MG) PO ONE (12:30)
[2024-03-24 13:40] VITALS: BP 131/82; O2SAT 97
== END 2024-03-24 15:20 ==
LOC: M INFU 12:25
PROVIDERS: ATTEND Internal Medicine Hematology
DX: D50.8 Other iron deficiency anemias (principal)
CPT/HCPCS: 96365; J1756

== ENCOUNTER 2024-03-31 12:00 | Outpatient (CLI) | payer MEDICARE, OTHER ==
[~2024-03-31 12:00] MED LIST changes: +ACETAMINOPHEN TAB 650MG DOSE (2X325MG) PO ONE
[2024-03-31 12:05] VITALS: BP 126/72; O2SAT 98
[2024-03-31] MEDS: IRON SUCROSE 200 MG in NS 100 ML OVER 1 HR IV ONE (12:51)
== END 2024-03-31 13:55 | disposition home or self-care (01) ==
LOC: M INFU 12:00
PROVIDERS: ATTEND Internal Medicine Hematology
DX: D50.8 Other iron deficiency anemias (principal)
CPT/HCPCS: 96365; J1756

== ENCOUNTER 2024-04-07 09:22 | Day surgery (SDC) | payer MEDICARE, OTHER ==
[~2024-04-07] VITALS: Ht 149.9 cm; Wt 76.7 kg
[~2024-04-07 09:22] MED LIST changes: -ACETAMINOPHEN TAB 650MG DOSE (2X325MG) PO ONE; -ALBUTEROL SULFATE 2.5MG/0.5ML INH NEB SOLN INH PRN; -EPINEPHrine INJ 1 MG/ML 1ML AMP IM PRN; +NS 1,000 ML IV ONE; -NS 1,000 ML IV SCH; -diphenhydrAMINE 50MG/ML VIAL IV PRN; -methylPREDNISolone 125MG 2ML VIAL IV PRN
[2024-04-07] MEDS ORDERED: fentaNYL 100 MCG/2 ML INJECTION As Ordered ONE (09:57)
[2024-04-07] MEDS ORDERED: LIDOCAINE 2% 100MG/5ML SDV (FOR ANES.) As Ordered ONE (10:58)
[2024-04-07] MEDS ORDERED: propofoL 200 MG/20 ML VIAL As Ordered ONE (10:58)
[2024-04-07] MEDS ORDERED: GLYCOPYRROLATE INJ 0.2 MG/ML 2 ML VIAL As Ordered ONE (11:04)
[2024-04-07] MEDS ORDERED: ePHEDrine SULFATE 25 MG/5 ML(5MG/ML) SYRINGE As Ordered ONE (11:12)
[2024-04-07 11:38] VITALS: BP 158/83; O2SAT 98
== END 2024-04-07 11:43 | disposition home or self-care (01) ==
LOC: M OPP 09:22
PROVIDERS: ATTEND Surgery
DX: K64.2 Third degree hemorrhoids (principal); K64.4 Residual hemorrhoidal skin tags; Z86.010 Personal history of colon polyps; D50.9 Iron deficiency anemia, unspecified; K44.9 Diaphragmatic hernia without obstruction or gangrene; K29.70 Gastritis, unspecified, without bleeding; Z79.52 Long term (current) use of systemic steroids; Z79.1 Long term (current) use of non-steroidal anti-inflammatories (NSAID)
CPT/HCPCS: 43235; 45378; J3010

== ENCOUNTER 2024-04-08 09:30 | Outpatient (CLI) | payer MEDICARE, OTHER ==
[~2024-04-08] VITALS: Ht 149.9 cm; Wt 76.8 kg
[2024-04-08 09:30] VITALS: BP 131/88; O2SAT 95
[~2024-04-08 09:30] MED LIST changes: +ACETAMINOPHEN TAB 650MG DOSE (2X325MG) PO ONE; +ALBUTEROL SULFATE 2.5MG/0.5ML INH NEB SOLN INH PRN; +EPINEPHrine INJ 1 MG/ML 1ML AMP IM PRN; -NS 1,000 ML IV ONE; +NS 1,000 ML IV SCH; +diphenhydrAMINE 50MG/ML VIAL IV PRN; +methylPREDNISolone 125MG 2ML VIAL IV PRN
[2024-04-08] MEDS: IRON SUCROSE 200 MG in NS 100 ML OVER 1 HR IV ONE (10:27)
[2024-04-08 12:10] VITALS: BP 135/75; O2SAT 96
== END 2024-04-08 12:15 ==
LOC: M INFU 09:30
PROVIDERS: ATTEND Internal Medicine Hematology
DX: D50.8 Other iron deficiency anemias (principal)
CPT/HCPCS: 96365; J1756

== ENCOUNTER → 2024-07-19 | Outpatient (CLI) | payer MEDICARE, OTHER ==
[~2024-07-19] MED LIST changes: -ACETAMINOPHEN TAB 650MG DOSE (2X325MG) PO ONE; -ALBUTEROL SULFATE 2.5MG/0.5ML INH NEB SOLN INH PRN; -EPINEPHrine INJ 1 MG/ML 1ML AMP IM PRN; -NS 1,000 ML IV SCH; -diphenhydrAMINE 50MG/ML VIAL IV PRN; -methylPREDNISolone 125MG 2ML VIAL IV PRN
[2024-07-19 10:45] LABS: BASO % 0.2 % (0.0-1.0); HEMOGLOBIN 14.7 g/dl (12.0-15.5); LYMPH % 22.7 % (24.0-44.0); MEAN CORPUSCULAR HEMOGLOBIN 31.3 pg (27.0-33.0); MEAN CORPUSCULAR VOLUME 98.1 fl (80.0-96.0); MONO % 8.3 % (2.0-8.0); NEUTROPHILS % 66.5 % (36.0-66.0); PLATELET COUNT, AUTOMATED 208 10^3/uL (150-450); RED BLOOD COUNT 4.69 10^6/uL (4.00-5.40)
[2024-07-19 10:46] LABS: EOS # 0.1 10^3/uL (0.0-0.5); LYMPH # 1.4 10^3/uL (1.5-5.0); MONO # 0.5 10^3/uL (0.0-0.8)
== END ==
LOC: M PLALAB 07:48
PROVIDERS: ATTEND Internal Medicine Hematology
DX: E61.1 Iron deficiency (principal)

== ENCOUNTER → 2024-09-27 | Outpatient (CLI) | payer MEDICARE, OTHER ==
[2024-09-27 10:39] LABS: BASO % 0.3 % (0.0-1.0); EOS # 0.1 10^3/uL (0.0-0.5); EOS % 1.1 % (0.0-3.0); HEMATOCRIT 45.7 % (36.0-47.0); HEMOGLOBIN 14.9 g/dl (12.0-15.5); LYMPH # 1.3 10^3/uL (1.5-5.0); LYMPH % 17.2 % (24.0-44.0); MEAN CORPUSCULAR HEMOGLOBIN 31.2 pg (27.0-33.0); MEAN CORPUSCULAR HGB CONC 32.6 g/dl (32.0-36.5); MEAN CORPUSCULAR VOLUME 95.6 fl (80.0-96.0); MONO # 0.6 10^3/uL (0.0-0.8); MONO % 7.8 % (2.0-8.0); NEUTROPHILS # 5.4 10^3/uL (1.5-8.5); NEUTROPHILS % 73.3 % (36.0-66.0); PLATELET COUNT, AUTOMATED 213 10^3/uL (150-450); RED BLOOD COUNT 4.78 10^6/uL (4.00-5.40); WHITE BLOOD COUNT 7.4 10^3/uL (4.0-10.0)
== END ==
LOC: M PLALAB 08:47
PROVIDERS: ATTEND Internal Medicine Hematology
DX: E61.1 Iron deficiency (principal)

== ENCOUNTER → 2024-11-10 | Outpatient (CLI) | payer MEDICARE, OTHER ==
[2024-11-10 10:15] LABS: BASO % 0.3 % (0.0-1.0); EOS # 0.1 10^3/uL (0.0-0.5); EOS % 1.9 % (0.0-3.0); HEMATOCRIT 45.2 % (36.0-47.0); HEMOGLOBIN 14.6 g/dl (12.0-15.5); LYMPH # 1.2 10^3/uL (1.5-5.0); LYMPH % 20.1 % (24.0-44.0); MEAN CORPUSCULAR HEMOGLOBIN 31.1 pg (27.0-33.0); MEAN CORPUSCULAR HGB CONC 32.3 g/dl (32.0-36.5); MEAN CORPUSCULAR VOLUME 96.2 fl (80.0-96.0); MONO # 0.6 10^3/uL (0.0-0.8); MONO % 9.2 % (2.0-8.0); NEUTROPHILS # 4.2 10^3/uL (1.5-8.5); NEUTROPHILS % 68.2 % (36.0-66.0); PLATELET COUNT, AUTOMATED 210 10^3/uL (150-450); WHITE BLOOD COUNT 6.2 10^3/uL (4.0-10.0)
== END ==
LOC: M PLALAB 08:26
PROVIDERS: ATTEND Internal Medicine Hematology
DX: E61.1 Iron deficiency (principal)

== ENCOUNTER 2024-11-24 14:18 | Outpatient (CLI) | payer MEDICARE, OTHER ==
[~2024-11-24] VITALS: Ht 149.9 cm; Wt 75.0 kg
[~2024-11-24 14:18] MED LIST changes: +ALBUTEROL SULFATE 2.5MG/0.5ML INH NEB SOLN INH PRN; +EPINEPHrine INJ 1 MG/ML 1ML AMP IM PRN; +diphenhydrAMINE 50MG/ML VIAL IV PRN; +methylPREDNISolone 125MG 2ML VIAL IV PRN
[2024-11-24 14:50] VITALS: BP 131/73; O2SAT 95
[2024-11-24] MEDS: IRON SUCROSE 300 MG in NS 250 ML OVER 90 MIN. IV ONE (14:53)
[2024-11-24 16:53] VITALS: BP 127/76; O2SAT 98
== END 2024-11-24 17:00 | disposition home or self-care (01) ==
LOC: M INFU 14:18
PROVIDERS: ATTEND Internal Medicine Hematology
DX: E61.1 Iron deficiency (principal)
CPT/HCPCS: 96365; 96366; J1756

== ENCOUNTER 2024-12-02 11:09 | Outpatient (CLI) | payer MEDICARE, OTHER ==
[~2024-12-02] VITALS: Ht 149.9 cm; Wt 75.0 kg
[~2024-12-02 11:09] MED LIST changes: -FEXO-116 PO; +FEXO-189 PO
[2024-12-02 11:20] VITALS: BP 137/65; O2SAT 95
[2024-12-02] MEDS: IRON SUCROSE 300 MG in NS 250 ML OVER 90 MIN. IV ONE (11:41)
[2024-12-02 13:35] VITALS: BP 135/69; O2SAT 98
== END 2024-12-02 13:30 ==
LOC: M INFU 11:09
PROVIDERS: ATTEND Internal Medicine Hematology
DX: E61.1 Iron deficiency (principal)
CPT/HCPCS: 96365; 96366; J1756

== ENCOUNTER → 2025-01-02 | Outpatient (CLI) | payer MEDICARE, OTHER ==
[~2025-01-02] MED LIST changes: -ALBUTEROL SULFATE 2.5MG/0.5ML INH NEB SOLN INH PRN; -EPINEPHrine INJ 1 MG/ML 1ML AMP IM PRN; -diphenhydrAMINE 50MG/ML VIAL IV PRN; -methylPREDNISolone 125MG 2ML VIAL IV PRN
== END ==
LOC: M WHC 07:46
PROVIDERS: ATTEND Family Medicine
DX: Z12.31 Encounter for screening mammogram for malignant neoplasm of breast (principal); M81.0 Age-related osteoporosis without current pathological fracture